=== PATIENT | male | born 1975 | race Caucasian/White ===

== ENCOUNTER 2024-10-31 20:14 | Outpatient (REF) | payer BC, SELFPAY ==
[2024-10-31 11:33] LABS: Abs Immature Grans 0.02 10^3/uL (0.0-0.06); HCT 45.6 % (40.0-50.0); HGB 15.5 g/dL (13.5-17.5); Immature Grans % 0.3 %; MCH 31.2 pg (27.0-33.0); MCHC 34.0 % (32.0-36.0); MCV 92 fL (80-95); MPV 10.0 fL (8.0-11.0); Platelet Count 303 10^3/uL (130-400); RBC 4.97 10^6/uL (4.36-5.78); RDW 12.6 % (11.8-14.1); RDW-SD 41.8 fL; WBC 5.87 10^3/uL (4.4-10.8)
== END 2024-10-31 20:15 | disposition home or self-care (01) ==
LOC: LBN 20:14
PROVIDERS: PCP Family Medicine; Visit Provider Internal Medicine Pulmonary Disease
DX: J45.50 Severe persistent asthma, uncomplicated (principal)
CPT/HCPCS: 82785; 85025

== ENCOUNTER 2024-11-26 02:07 | Outpatient (CLI) | payer BC, SELFPAY ==
--- NOTE | 2024-11-26 08:00 | DI.US_ITS ---
APPROVED REPORT EXAM: Comprehensive 2D, Doppler, and color-flow Echocardiogram Patient Location: Out-Patient Hot Patcher: Samaria Sellers RDCS (AE) Indications: Dyspnea, LE swelling Other Information Study Quality: Fair. Technically limited study due to body habitus. Conclusion Normal left ventricular wall thickness and chamber size. Ejection fraction is 55%. There are no segmental wall motion abnormalities Normal right ventricular size and function Both atria are normal in size There is no structural or hemodynamically significant valvular disease Wall motion Left Ventricle The left ventricle is normal size. The left ventricular systolic function is normal. The left ventricular ejection fraction is within the normal range. There is normal left ventricular wall thickness. There is normal LV segmental wall motion. There is no ventricular septal defect visualized. LVEF is 55%. Right Ventricle The right ventricle is normal size. The right ventricular systolic function is normal. Atria The left atrium size is normal. The right atrium size is normal. The interatrial septum is intact with no evidence for an atrial septal defect. Aortic Valve The aortic valve is normal in structure. Aortic valve is trileaflet. There is no aortic valvular stenosis. No aortic regurgitation is present. Mitral Valve The mitral valve is normal in structure. No evidence of mitral valve stenosis. Trace mitral regurgitation. Tricuspid Valve The tricuspid valve is normal in structure. There is no tricuspid valve stenosis. Trace tricuspid regurgitation. Unable to assess PA pressure. Pulmonic Valve The pulmonary valve is normal in structure. There is no pulmonic valvular stenosis. There is no pulmonic valvular regurgitation. Great Vessels The aortic root is normal in size. The ascending aorta is normal in size. Aortic arch is normal in caliber. IVC is normal in size and collapses >50% with inspiration. Pericardium There is no pericardial effusion. 2D Dimensions IVSD d PLAX 1.20 cm M: 0.6-1.2 Ao Root d 3.16 cm M: 3.1 - 3.7 LVPW d PLAX 1.23 cm M: 0.6 - 1.2 Ao Asc Diam d 3.17 cm M: 2.6 - 3.4 LVID d PLAX 5.00 cm M: 4.2 - 5.8 LVDs 3.60 cm M: 2.5 - 4.0 LV EF Teichholz 53.6 % FS 27.74 % LV EDV (Teich) 116.5 mL LV ESV (Teich) 54.1 mL M-Mode TAPSE 1.93 cm (M/F) >1.7 Auto EF LV EDV A4C 126.2 mL LV EDV A2C 126.0 mL LV EDV BP 126.8 mL LV ESV A4C 59.9 mL LV ESV A2C 58.3 mL LV ESV BP 59.1 mL LVEF(%) A4C 52.5 % LVEF(%) A2C 53.8 % LVEF(%) BP 53.4 % LV SV A4C 66.2 ml LV SV A2C 67.8 ml LV SV BP 67.7 ml LV CO A4C 5.4 L/min LV CO A2C 5.6 L/min LV CO BP 5.5 L/min HR A4C 81.27 BPM HR A2C 82.01 BPM LV EDV Index (BP) LA Volume LA Length A4C 5.2 cm LA Length A2C 5.5 cm LA Area A4C s 18.52 cm2 LA Area A2C s 18.31 cm2 LA Vol A4C A-L 56.39 mL LA Vol A2C A-L 51.83 mL LA Vol Biplane A-L 55.8 mL LA Vol/BSA A4C A-L LA Vol/BSA A2C A-L LA Vol/BSA BP A-L 20.3 mL/m2 LA Vol A4C MOD 49.7 mL LA Vol A2C MOD 47.2 mL LA Vol BP MOD 49.6 mL RA Volume RA Area A4C 8.7 cm2 RA ESV A4C (A-L) 15.0mL RA Vol/BSA A4C A-L RA Length A4C 4.3 cm RA ESV A4C (MOD) 15.2mL LV Diastology MV E' medial 0.063 (>0.07 m/s) MV E Vmax 0.61 (0.4-1.3 m/s) MV E/E' MED 9.57 (<14) MV A Vmax 0.65 (0.4-1.3 m/s) MV E' lateral 0.087 (>0.1 m/s) E/A Ratio 0.9 MV E/E' LAT 6.93 (<14) MV E' Average 0.075 m/s MV E/E'(average) 8.04 Aortic Valve AoV Vmax 1.03 m/s LVOT Vmax 0.93 m/s AoV Peak Grad 4.3 mmHg LVOT Peak Grad 3.5 mmHg AoV Area (Vmax) 3.21 cm2 LVOT VTI 0.180 m AoV VTI 0.214 m LVOT Mean Grad 2.3 mmHg AoV Mean Braden. 0.78 m/s LVOT SV 63.94 mL AoV Mean Grad 2.7 mmHg LVOT Diam s 2.10 cm AoV Area (VTI) 2.99 cm2 AV Regurg Peak Gr. 4.27 mmHg Velocity Ratio 0.90 Mitral Valve MV DT 252 (160-240 msec) MV Vmax TIPS 0.75 m/s MV Mean Grad 1.1 (<2mmHg) MV VTI 0.157 m Pulmonary Valve PV Vmax 1.15 (0.5-1.5 m/s) RVOT Vmax 0.70 m/s PV Peak Grad 5.3 mmHg RVOT Peak Gr. 1.9 mmHg PV Mean Braden 0.85 m/s RVOT VTI 0.140 m PV Mean Grad 3.1 mmHg RVOT Mean Gr. 1.2 mmHg Tricuspid Valve TV S' 0.10 m/s
== END 2024-11-26 02:27 ==
LOC: DI 02:07
PROVIDERS: PCP Family Medicine; Visit Provider Internal Medicine Cardiovascular Disease
DX: R06.00 Dyspnea, unspecified (principal)
CPT/HCPCS: 93306